=== PATIENT | female | born 1990 | race American Indian/Alaskan Native ===

== ENCOUNTER → 2024-01-13 | Outpatient (CLI) | payer MEDICAID, SELFPAY ==
--- NOTE | 2024-01-13 15:38 | XR_ITS ---
Examination: PA lateral chest 2 views TECHNIQUE: Upright PA lateral chest 2 views Exam date and time: January 13, 2024 1615 hours Comparison July 30, 2013 INDICATIONS: Coughing shortness of breath beginning 6 days ago FINDINGS: Normal heart size Lungs are clear The osseous structures are intact IMPRESSION: No active disease
== END | disposition home or self-care (01) ==
PROVIDERS: PCP Internal Medicine; Referring Provider Internal Medicine; Visit Provider Internal Medicine
DX: R05.9 Cough, unspecified (principal); R06.02 Shortness of breath
CPT/HCPCS: 71046

== ENCOUNTER 2024-04-13 10:32 | Outpatient (AMB) | payer MEDICAID, SELFPAY ==
--- NOTE | 2024-04-13 10:41 | GYNCLNT_ITS ---
Allergies/Home Meds Allergies & Medications Allergies bee venom protein (honey bee) Allergy (Severe, Verified 05/13/21 10:41) Anaphylaxis codeine Allergy (Severe, Verified 05/13/21 10:41) Abdominal Pain Intake Visit Data Collection New Patient or Established: New Patient (never been to [facility]) Reason for Visit:: Follow-up after recent evaluation at [facility], resuming fertility treatment. Do You Feel Safe at Home: Yes Authorities Contacted: N/A PCP or OBGYN visit in last 3 months: Yes Smoking Status Smoking Status: Never smoker Questionnaires Social History Tobacco History Smoking Status: Never smoker Domestic Abuse History Do You Feel Safe at Home: Yes Past Medical History Past Medical History Have you ever been diagnosed with any of the following: Cardiology Problems Congestive Heart Failure: No Respiratory Problems Chronic Obstructive Pulmonary Disease (COPD): No Genital/Urinary Problems Renal Disease: No Endocrine Problems Diabetes Mellitus Type 1: No Diabetes Mellitus Type 2: No History of Present Illness HPI Narrative The patient, Lara Mendoza, presents for follow-up after recent evaluation for fertility treatments. She was previously seen for fertility treatments but was lost to follow-up since 2022. The patient has a history of irregular menstrual cycles, with her most recent cycle occurring on December 25, lasting 6 days. Prior to that, her last cycle was in June. She was not actively seeking fertility treatment during this time but is now interested in resuming. At her last visit at a different facility, lab tests were ordered. On January 25, 2024, her FSH was 6.6, and anti-M?llerian hormone was 7.48. The patient was given a Provera Challenge to induce menses. She reports taking the medication in January and experiencing a period before finishing the course. She had another period on March 25. The patient expresses concern about potential future miscarriages, referencing a previous loss. Laboratory, Imaging, and Diagnostic Test Results - FSH: 6.6 (tested on 01-25-2024) - Anti-M?llerian hormone: 7.48 (tested on 01-25-2024) Review of Systems Review of Systems Systems Reviewed: All systems reviewed, normal except as documented Exam General Limitations: no limitations General Appearance: alert, in no apparent distress, comfortable, cooperative, healthy appearing, well developed and well groomed Head Head exam: atraumatic, normocephalic and normal inspection Neck Neck exam: Present normal inspection, full ROM and trachea midline Chest Chest inspection: Present normal inspection and symmetric chest wall rise Resp Respiratory exam: Present normal lung sounds bilaterally Card Cardiovascular exam: Present regular rate, normal rhythm and normal heart sounds Abdominal Abdominal exam: Present soft and normal bowel sounds Extremities Extremities exam: Present normal inspection and full ROM Back Back exam: Present normal inspection and full ROM Psych Psychiatric exam: Present normal affect and normal mood Skin Skin exam: Present warm, dry, intact and normal color Assessment & Plan Diagnosis / Problem List (1) Abnormal uterine and vaginal bleeding, unspecified: Status: Acute Plan: Infertility with irregular menstrual cycles Patient presents for follow-up of fertility treatment after being lost to follow-up since 2022. She has a history of irregular menstrual cycles, with her most recent cycle on December 25 lasting 6 days, and the previous one in June. Recent lab tests from 01-25-2024 show FSH of 6.6 and anti-M?llerian hormone of 7.48, which are considered good results. Patient had a Provera Challenge to induce menses in January, followed by a period in March. The irregular cycles suggest anovulation, which is preventing . - Prescribe 5-day course of medication (likely Provera) to induce menstruation - Once menstruation begins, start fertility medication (letrozole) to trigger ovulation - Provide written instructions for medication administration - Recommend continued menstrual cycle tracking using gil - Advise timing of sexual intercourse based on ovulation prediction from gil - Suggest use of [id number] ovulation test kits for confirmation - Schedule monthly follow-up appointments - Informed consent: Patient agreed to proceed with fertility treatment plan after discussing concerns about potential miscarriage History of miscarriage Patient has a history of miscarriage and expresses concern about recurrence. The clinician explains that the previous miscarriage may have been due to a luteal phase defect, where hormones don't function properly between conception and placenta formation. - Reassure patient that preventive treatments for miscarriage will be initiated once is confirmed - Advise immediate return to clinic upon positive test for initiation of hormonal support and other preventive measures (2) Female infertility, unspecified: Status: Acute Additional Plan Follow Up: 5 Weeks Office Procedures OB Clinic LOC & Office Proc's Nursing/Assessment Patient Status: Initial/New Patient OB Clinic Nursing Assessment: Medication Reconciliation OB Clinic Coordination of Care: Complex Care and Chronic Disease 1-5, Education Complex Pt/Fam and Consent,records obtained, informed consent New Patient Charge New Patient Point Assignment: 1054 New Patient Point Charge: CREDIT ADMINISTRATION OFFICER Level 3 ([id number])
== END 2024-04-13 10:57 | disposition home or self-care (01) ==
LOC: HODSOBC 10:32
PROVIDERS: Supervising Provider Obstetrics & Gynecology; Visit Provider Obstetrics & Gynecology
DX: N97.9 Female infertility, unspecified (principal); N93.9 Abnormal uterine and vaginal bleeding, unspecified
CPT/HCPCS: 99203; G0463

== ENCOUNTER 2024-05-18 09:46 | Outpatient (AMB) | payer MEDICAID, SELFPAY ==
[2024-05-18 10:06] VITALS: BP 130/79; PULSE 73; RESP 16; TEMP 35.9; O2SAT 97; BMI 36.6
--- NOTE | 2024-05-18 10:06 | GYNCLNT_ITS ---
Vital Signs 05/18/24 10:06 Height 1.6 m Height Method Stated Weight 93.667 kg Weight Measurement Method Standing Scale BMI 36.6 BP 130/79 Blood Pressure Source Automatic Cuff Blood Pressure Location Left Upper Arm Position Sitting Respiration 16 Pulse 73 Pulse Source Monitor Temp 96.7 F L Temp Source Oral Pulse Oximetry (%) 97 Oxygen Delivery Method Room Air Allergies/Home Meds Allergies & Medications Allergies bee venom protein (honey bee) Allergy (Severe, Verified 05/18/24 10:07) Anaphylaxis codeine Allergy (Severe, Verified 05/18/24 10:07) Abdominal Pain Medication Reconciliation hydrocodone 5 mg-acetaminophen 325 mg tablet 1 tab PO Q8H PRN pain #10 tabs 01/22/21 [Rx Confirmed 05/18/24] cephalexin 500 mg capsule 500 mg PO BID #14 caps 05/13/21 [Rx Confirmed 05/18/24] clomiphene citrate 50 mg tablet 50 mg PO QDAY 5 days #5 tabs 05/18/24 [Rx] Intake Visit Data Collection New Patient or Established: Established Patient (seen at [facility] within 3 years) Reason for Visit:: Ovulation induction Seen by Clinical Staff ONLY (RN/MA): No Area Field Person Required: No Do You Feel Safe at Home: Yes Authorities Contacted: N/A PCP or OBGYN visit in last 3 months: Yes Hx Now: No Are you currently on any form of Control: No Pain Present Currently: No Pain Scale Used: Joe-Albrecht/Numerical Pain scale:: 0 Smoking Status Smoking Status: Never smoker 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 1. Little interest or pleasure in doing things: not at all 2. Feeling down, depressed, or hopeless: not at all Total score: 0 PHQ-9 3. Trouble falling or staying asleep, or sleeping too much: Not at all 4. Feeling tired or having little energy: Not at all 5. Poor appetite or overeating: Not at all 6. Feeling bad about yourself - or that you are a failure or have let yourself or your family down: Not at all 7. Trouble concentrating on things, such as reading the newspaper or watching television: Not at all 8. Moving or speaking so slowly that other people could have noticed? - Or the opposite - being so fidgety or restless that you have been moving around a lot more than usual: not at all 9. Thoughts that you would be better off or of hurting yourself in some way: Not at all Total score: 0 If you checked off any problems, how difficult have these problems made it for you to do your work, take care of things at home, or get along with other people ?: not difficult at all Source: Developed by Drs. Henri Mora, Aylin Orantes, Reed Gongora and colleagues, with an educational hitseh from [employer]. Depression screen completed yes Social History Living Situation History Marital Status: Lives With: Family Housing: House Tobacco History Smoking Status: Never smoker Alcohol History Alcohol Intake: Never Domestic Abuse History Do You Feel Safe at Home: Yes Past Medical History Past Medical History Have you ever been diagnosed with any of the following: Cardiology Problems Congestive Heart Failure: No Respiratory Problems Chronic Obstructive Pulmonary Disease (COPD): No Genital/Urinary Problems Renal Disease: No Endocrine Problems Diabetes Mellitus Type 1: No Diabetes Mellitus Type 2: No History of Present Illness HPI Narrative The patient, seen one month ago, was prescribed Provera. She started her menstrual period on the 18th of the previous month, which lasted for a week and then stopped. Subsequently, she took a 5-day course of Clomid as prescribed. The patient reports no side effects from the medication. She has not yet begun checking for ovulation as it is not yet time. The patient mentions a history of irregular menstrual cycles. Review of Systems Review of Systems Systems Reviewed: All systems reviewed, normal except as documented Exam General Limitations: no limitations General Appearance: alert, in no apparent distress, comfortable, cooperative, healthy appearing, well developed and well groomed Head Head exam: atraumatic, normocephalic and normal inspection Neck Neck exam: Present normal inspection, full ROM and trachea midline Chest Chest inspection: Present normal inspection and symmetric chest wall rise Abdominal Abdominal exam: Present soft and normal bowel sounds Extremities Extremities exam: Present normal inspection and full ROM Back Back exam: Present normal inspection and full ROM Psych Psychiatric exam: Present normal affect and normal mood Skin Skin exam: Present warm, dry, intact and normal color Assessment & Plan Diagnosis / Problem List (1) Female infertility, unspecified: Status: Acute (2) Abnormal uterine and vaginal bleeding, unspecified: Status: Acute Plan: The patient is undergoing treatment for infertility. She previously took Provera to induce menstruation, which started on April 26. She has now completed a 5- day course of Clomid, which was prescribed to induce ovulation. The patient has not yet started checking for ovulation as it is too early in her cycle. No side effects from the medication have been reported. 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
== END 2024-05-18 10:27 | disposition home or self-care (01) ==
LOC: HODSOBC 09:46
PROVIDERS: Supervising Provider Obstetrics & Gynecology; Visit Provider Obstetrics & Gynecology
DX: N97.9 Female infertility, unspecified (principal); N93.9 Abnormal uterine and vaginal bleeding, unspecified
CPT/HCPCS: 99213; G0463

== ENCOUNTER → 2024-06-24 | Outpatient (CLI) | payer MEDICAID, SELFPAY ==
--- NOTE | 2024-06-24 16:00 | XR_ITS ---
Exam: MRI knee without contrast, right completely Date and time of exam: June 24, 2024 1634 hours Comparison July 28, 2013 INDICATIONS: Joint pain and swelling weakness instability of 11 years Technique: Multiple axial, coronal, and sagittal sections on the knee have been obtained. T2-Weighted sagittal, fat-suppressed images, TR 3,500, TE 62, T2 weighted coronal fat-saturated images, TR 3,500, TE 62 Proton density sagittal sections, TR 1800, TE 31. T-1 weighted coronal images, TR 524, TE 13.0 Findings: Medial meniscus anterior horn is intact. Medial meniscus, body intact. Posterior horn medial meniscus peripheral horizontal linear tear. Lateral meniscus anterior horn is intact Lateral meniscus, body is intact Posterior horn lateral meniscus is intact Anterior cruciate ligament moderately attenuated. Posterior cruciate ligament appears intact. Knee effusion is minimal. Quadriceps and patellar tendons appear intact. There is no evidence of tendinosis. Inflammatory change or fracture of Hoffa's fat pad is not seen. Medial patellar facet demonstrates no thinning. Lateral patellar facet cartilage demonstrates no thinning. Trochlear cartilage demonstrates no thinning. Marrow signal adequate. Medial collateral ligament appears intact. No meniscocapsular separation is seen. Illiotibial band and fibular collateral ligament are intact. Biceps femoris tendons appear intact. Medial femoral condylar articular cartilage demonstrates mild thinning. Lateral femoral condylar articular cartilage demonstratesno thinning. Tibial plateau cartilage demonstrates no thinning. Impression: Peripheral horizontal linear tear posterior horn medial meniscus Moderate attenuation anterior cruciate ligament
== END | disposition home or self-care (01) ==
LOC: SMRI 15:49
PROVIDERS: PCP Family Medicine; Referring Provider Physician Assistant; Visit Provider Physician Assistant
DX: S83.241A Other tear of medial meniscus, current injury, right knee, initial encounter (principal); X58.XXXA Exposure to other specified factors, initial encounter; M25.861 Other specified joint disorders, right knee
CPT/HCPCS: 73721

== ENCOUNTER 2024-06-30 09:10 | Outpatient (AMB) | payer MEDICAID, SELFPAY ==
[2024-06-30 09:21] VITALS: BP 149/92; PULSE 64; RESP 67; TEMP 36.4; O2SAT 97; BMI 36.6
--- NOTE | 2024-06-30 09:21 | AMB.GYNCLNOT ---
Vital Signs 06/30/24 09:21 Height 1.6 m Height Method Stated Weight 93.894 kg Weight Measurement Method Standing Scale BMI 36.6 BP 149/92 H Blood Pressure Source Automatic Cuff Blood Pressure Location Right Upper Arm Position Sitting Respiration 67 H Pulse 64 Pulse Source Monitor Temp 97.6 F Temp Source Oral Pulse Oximetry (%) 97 Oxygen Delivery Method Room Air Allergies/Home Meds Allergies & Medications Allergies bee venom protein (honey bee) Allergy (Severe, Verified 06/30/24 09:23) Anaphylaxis codeine Allergy (Severe, Verified 06/30/24 09:23) Abdominal Pain Medication Reconciliation hydrocodone 5 mg-acetaminophen 325 mg tablet 1 tab PO Q8H PRN pain #10 tabs 01/22/21 [Rx Confirmed 06/30/24] cephalexin 500 mg capsule 500 mg PO BID #14 caps 05/13/21 [Rx Confirmed 06/30/24] clomiphene citrate 50 mg tablet 50 mg PO QDAY 5 days #5 tabs 05/18/24 [Rx Confirmed 06/30/24] Intake Visit Data Collection New Patient or Established: Established Patient (seen at [facility] within 3 years) Reason for Visit:: INFERTILITY FOLLOW UP Seen by Clinical Staff ONLY (RN/MA): No Digital Learning Platforms Manager Required: No Do You Feel Safe at Home: Yes Authorities Contacted: N/A PCP or OBGYN visit in last 3 months: Yes Hx Now: No Are you currently on any form of Control: No Pain Present Currently: No Pain Scale Used: Joe-Albrecht/Numerical Pain scale:: 0 Smoking Status Smoking Status: Never smoker 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 Drier 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 Menstrual regularity: irregular Flow: heavy Monthly: Yes Age at menarche: 11 Currently sexually active: Yes 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 1. Little interest or pleasure in doing things: not at all 2. Feeling down, depressed, or hopeless: not at all Total score: 0 PHQ-9 3. Trouble falling or staying asleep, or sleeping too much: Not at all 4. Feeling tired or having little energy: Not at all 5. Poor appetite or overeating: Not at all 6. Feeling bad about yourself - or that you are a failure or have let yourself or your family down: Not at all 7. Trouble concentrating on things, such as reading the newspaper or watching television: Not at all 8. Moving or speaking so slowly that other people could have noticed? - Or the opposite - being so fidgety or restless that you have been moving around a lot more than usual: not at all 9. Thoughts that you would be better off or of hurting yourself in some way: Not at all Total score: 0 Source: Developed by Drs. Henri Mora, Aylin Orantes, Reed Gongora and colleagues, with an educational hitesh from [employer] Depression screen completed yes Social History Living Situation History Lives With: Family Housing: House Tobacco History Smoking Status: Never smoker Alcohol History Alcohol Intake: Never Domestic Abuse History Do You Feel Safe at Home: Yes History of Present Illness HPI Narrative Patient presents for infertility follow-up. She was previously prescribed Clomid and is here to discuss the results of her ovulation tests. She reports that she started her last menstrual cycle on May 28, which lasted for 3 days until May 30. She did not take the prescribed Clomid during this cycle as she was unsure about taking it due to the short duration of her period. Patient mentions that she had a pap smear and test at the [facility] clinic approximately two weeks ago, which was negative. She has not had any menstrual bleeding in June. She acknowledges that she did take Clomid during a previous cycle but did not take it this time due to confusion about the timing with her short menstrual period. She expresses a lack of understanding about the need to take the medication even with a brief menstrual flow. She is a 34-year-old female with a history of infertility. Her obstetric history is G0 T0 L0, and she is not currently (negative test during visit). Medications include Clomid, which was prescribed at the last visit. Patient took it during the previous cycle but did not take it during the current cycle due to misunderstanding about short period duration. She has previously taken Provera to initiate a period. Review of Systems Review of Systems Systems Reviewed: All systems reviewed, normal except as documented Exam General General Appearance: alert, in no apparent distress and healthy appearing Head Head exam: atraumatic Neck Neck exam: Present normal inspection and trachea midline Chest Chest inspection: Present normal inspection and symmetric chest wall rise External exam: Present normal external exam; Absent tenderness Neuro Neurological exam: Present oriented X3 Psych Psychiatric exam: Present normal affect and normal mood Office Procedures OB Clinic LOC & Office Proc's Nursing/Assessment Patient Status: Established Patient OB Clinic Nursing Assessment: Medication Reconciliation, Update PMH in EMR and Vital Signs OB Clinic Coordination of Care: Complex Care and Chronic Disease 1-5, Consent,records obtained, informed consent, Education Simp Pt/Fam, Lab and Imaging orders, Results/Orders obtained and Staff clarify orders Established Patient Charge Established Patient Point Assignment: 105 Assessment & Plan Diagnosis / Problem List (1) Female infertility, unspecified: Status: Acute (2) Abnormal uterine and vaginal bleeding, unspecified: Status: Acute Plan Infertility Plan: - Prescribe Provera to induce menstruation. - Start Clomid 100 mg PO daily on day 5 of the cycle once menstruation begins. - Begin ovulation testing on day 12 of the cycle. - Provided counseling on: - Timing of cycle tracking - Importance of starting Clomid on the 5th day of cycle - Tracking ovulation starting on the 12th day of the cycle - Timing intercourse around ovulation - Patient to keep a written record of medication administration and cycle details. - Follow-up appointment in 6 weeks for reassessment and test.
== END 2024-06-30 09:48 | disposition home or self-care (01) ==
PROVIDERS: Supervising Provider Obstetrics & Gynecology; Visit Provider Obstetrics & Gynecology
DX: N97.9 Female infertility, unspecified (principal); N93.9 Abnormal uterine and vaginal bleeding, unspecified
CPT/HCPCS: 99213; G0463

== ENCOUNTER 2024-11-07 10:00 | Outpatient (RCR) | payer MEDICAID, SELFPAY ==
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
--- NOTE | 2024-11-07 10:58 | PT.ODAYNRPT ---
PT Outpatient Daily Note OP Daily Note Outpatient Physical Therapy Treatment Date: 11/07/24 Visit Reasons: LEFT SHOULDER PAIN Subjective: Pt c/o minimal Lt shoulder pain Objective: See F/S for therex performed Assessment: Fair tolerance with therex due to Lt shoulder pain, required moderate vc's and tc's to remain within pain free ROM. Ice pack and TENS applied post session and reports a decrease in pain after use. Plan: Continue with POC Length of Time (minutes) of Treatment: 30 Minutes Procedure Charges Therapeutic Exercise 30 minutes: Yes
== END 2024-11-08 23:59 | disposition home or self-care (01) ==
LOC: CPTX 10:00
PROVIDERS: PCP Physician Assistant Medical; Referring Provider Physician Assistant Medical; Visit Provider Physician Assistant Medical
DX: M25.512 Pain in left shoulder (principal)
CPT/HCPCS: 97110; 97162

== ENCOUNTER 2024-12-09 14:00 | Outpatient (RCR) | payer MEDICAID, SELFPAY ==
--- NOTE | 2024-11-09 10:52 | PT.ODAYNRPT ---
PT Outpatient Daily Note OP Daily Note Outpatient Physical Therapy Treatment Date: 11/09/24 Visit Reasons: LEFT SHOULDER PAIN Subjective: Pt states no changes to Lt shoulder and is still experiencing pain with movement. Objective: See F/S for therex performed Assessment: Improved tolerance with pulleys and finger ladder due to use of MHP and TENS prior to therex. Fair tolerance with isometric shoulder strengthening exercises due to pain to LT shoulder, advised to maintain within tolerance force - pt complied. Plan: Continue with POC Length of Time (minutes) of Treatment: 30 Minutes Procedure Charges Therapeutic Exercise 30 minutes: Yes
--- NOTE | 2024-11-16 11:12 | PT.ODAYNRPT ---
PT Outpatient Daily Note OP Daily Note Outpatient Physical Therapy Treatment Date: 11/16/24 Visit Reasons: LEFT SHOULDER PAIN Subjective: Pt reports L shoulder is painful and stiff, c/o 5/10 pain. Objective: Please see flow sheet for ther ex list. Assessment: Pt has poor activity tolerance due to pain response. Plan: Continue with poC. Length of Time (minutes) of Treatment: 30 Minutes Procedure Charges Therapeutic Exercise 30 minutes: Yes
--- NOTE | 2024-12-09 15:06 | PT.ODAYNRPT ---
PT Outpatient Daily Note OP Daily Note Outpatient Physical Therapy Treatment Date: 12/09/24 Visit Reasons: LEFT SHOULDER PAIN Subjective: Pt reports L shoulder gets stuck and notice reaching behind her for example when in the car and reaching back to her kids she notices it is the most difficult and painful motions. Pt requesting HEP so she can work on reaching back at home. Objective: Please see flow sheet for ther ex list. Assessment: Pt instructed on AAROM HEP, educated to perform within tolerable range, pt agreed. Plan: Continue with poC. Length of Time (minutes) of Treatment: 30 Minutes Procedure Charges Therapeutic Exercise 30 minutes: Yes
== END 2024-12-09 23:59 | disposition home or self-care (01) ==
LOC: CPTX 14:00
PROVIDERS: PCP Physician Assistant Medical; Referring Provider Physician Assistant Medical; Visit Provider Physician Assistant Medical
DX: M25.512 Pain in left shoulder (principal)
CPT/HCPCS: 97110

== ENCOUNTER 2024-12-16 14:02 | Outpatient (RCR) | payer MEDICAID, SELFPAY ==
--- NOTE | 2024-12-16 14:51 | PT.ODAYNRPT ---
PT Outpatient Daily Note OP Daily Note Outpatient Physical Therapy Treatment Date: 12/16/24 Visit Reasons: left shoulder pain Subjective: Pt reports L shoulder continues to be sore and painful. Objective: Please see flow sheet for ther ex list. Assessment: Pt continues to have high pain delaying progress. Plan: PTOR to assess for d/c note. Length of Time (minutes) of Treatment: 30 Minutes Procedure Charges Therapeutic Exercise 30 minutes: Yes
== END 2025-01-08 23:59 | disposition home or self-care (01) ==
LOC: CPTX 14:02
PROVIDERS: PCP Physician Assistant Medical; Referring Provider Physician Assistant Medical; Visit Provider Physician Assistant Medical
DX: M25.512 Pain in left shoulder (principal)
CPT/HCPCS: 97110